=== PATIENT | male | born 1965 | race Caucasian/White ===

== ENCOUNTER 2025-02-14 12:59 | Emergency (ER) | payer OTHER, SELFPAY ==
[2025-02-14 13:01] VITALS: BP 149/99
[2025-02-14] MEDS: TORADOL 30 MG IM (13:07)
[2025-02-14 13:16] LABS: Hematocrit 49.2 % (39.0-52.0); Hemoglobin 17.0 g/dL (13.0-18.0); Mean Corp Hgb Conc. 34.6 g/dL (33.0-37.0); Mean Corpuscular Volume 87.1 fL (80.0-94.0); Nucleated Red Blood Cells % 0 % (-); Platelet Count 176 10^3/uL (130-400); Red Cell Dist. Width 13.1 % (11.5-14.5)
[2025-02-14 13:31] LABS: ALT (SGPT) 24 U/L (0-50); AST (SGOT) 24 U/L (17-59); Albumin 5.3 g/dl (3.5-5.0); Alkaline Phosphatase 57 U/L (38-126); Blood Urea Nitrogen 25 mg/dl (9-20); Calcium 9.5 mg/dl (8.4-10.2); Carbon Dioxide 26 mmol/L (22-30); Chloride 103 mmol/L (98-107); Glucose 108 mg/dl (70-99); Potassium 3.8 mmol/L (3.5-5.1); Sodium 139 mmol/L (135-145); Total Protein 8.1 g/dl (6.3-8.2); eGFR > 60.00
[2025-02-14 16:54] LABS: Urine Character Clear (Clear)
[2025-02-14 17:01] LABS: Urine Squamous Cell 0-2 /LPF (Few)
[2025-02-14 17:02] LABS: Urine Red Blood Cell 80-90 /HPF (0-2); Urine White Cell 21-25 /HPF (0-5)
[2025-02-14] MEDS: NSS 1000 IV (18:05)
[2025-02-14] MEDS: MORPHINE SULFATE 4 MG IV (18:05)
--- NOTE | 2025-02-14 19:55 | ED.GENMED ---
History of Present Illness
General
Chief Complaint: Flank Pain
Source: patient
Exam Limitations: none
Time Seen by Provider: 02/14/25 16:56
Nursing documentation reviewed up to this point in time: agreed with
History of Present Illness
History of Present Illness:
59-year-old male presenting to the emergency department today with concerns of left-sided flank pain. On arrival patient with ongoing pain did receive Toradol with improvement. Vital signs are normal. Labs without acute abnormalities urinalysis
showing 80 red blood cells 20 white blood cells many bacteria but no nitrites. CT scan confirming a 4 mm stone to the mid left ureter.
Review of Systems
Review of Systems
Allergies reviewed?: Yes
All Other Systems: ROS reviewed and negative except as documented in HPI and ROS
Phy Exam
Physical Exam
Physical Exam:
GENERAL: Alert , in no apparent distress
EYE: pupils equal and reactive
NECK: Supple, no significant adenopathy.
ENT: o/p clr, mmm.
CARDIAC: Regular rate and rhythm .
LUNGS: Clear breath sounds bilaterally, no acute respiratory distress, no wheezes/rales/rhonchi
ABDOMEN: Soft, without focal tenderness, no r/g, no cvat
NEUROLOGICAL: Alert and oriented, no focal neuro deficits
SKIN: Warm and dry, skin intact.
MUSCULOSKELETAL: No edema, well perfused.
PSYCH: Normal and appropriate interaction.
Course
Orders/Labs/Results
Orders:
Orders
02/14/25 13:06
Ketorolac [Toradol] 30 mg .ROUTE .STK-MED ONE
02/14/25 13:07
CMP [Comprehensive Metabolic Panel] Urgent
Complete Blood Count/With Diff Urgent
Ketorolac [Toradol] 30 mg IM NOW STA
02/14/25 13:10
CT Abd/pelvis Wo Iv Cont Urgent
Comment:
Reason For Exam: left flank pain, hx of kidney stones
02/14/25 16:45
Urinalysis Reflex To Culture Urgent
Date Specimen was Collected: 02/14/25
Time Specimen was Collected: 16:35
Urine Microscopic Reflex Cult Urgent
Urine Culture Urgent
PAKO Source: U
Specimen Description:
Date Specimen was Collected: 02/14/25
Time Specimen was Collected: 16:35
02/14/25 17:50
0.9% Sodium Chloride 1000 ml [Nss] 1,000 ml IV BOLUS
Morphine Sulfate 4 mg IV NOW STA
Abnormal Lab Results
02/14/25 02/14/25
13:07 16:45
BUN 25 H mg/dl
(9-20)
Glucose 108 H mg/dl
(70-99)
Albumin 5.3 H g/dl
(3.5-5.0)
Urine Ketones 2+ A
(Negative)
Ur Occult Blood Reflex 4+ A
(Negative)
Leukocyte Esterase Rfl 1+ A
(Negative)
Urine RBC 80-90 A /HPF
(0-2)
Urine WBC (Reflex) 21-25 A /HPF
(0-5)
Urine Bacteria (Reflex) Many A
(Negative)
Urine Albumin (Reflex) 3+ A
(Neg - Trace)
02/14/25 13:07
02/14/25 13:07
Vital Signs
Initial and Last Documented VS:
Initial Vital Signs
Temp Pulse Resp BP Pulse Ox
97.4 F 72 18 149/99 100
02/14/25 13:01 02/14/25 13:01 02/14/25 13:01 02/14/25 13:01 02/14/25 13:01
Last Documented Vital Signs
Temp Pulse Resp BP Pulse Ox
97.4 F 70 16 149/99 99
02/14/25 13:01 02/14/25 19:58 02/14/25 18:00 02/14/25 13:01 02/14/25 19:58
MDM/Problems Addressed
MDM/Problems Addressed:
59-year-old male presenting to the emergency department today with concerns of left-sided flank pain. On arrival patient with ongoing pain did receive Toradol with improvement. Vital signs are normal. Labs without acute abnormalities urinalysis
showing 80 red blood cells 20 white blood cells many bacteria but no nitrites. CT scan confirming a 4 mm stone to the mid left ureter. Patient was given fluids as well as additional dose of pain medication. Case discussed with urology
recommending discharge home for trial of passage and close outpatient follow-up. Return precautions given.
*Pulse Oximetry
SaO2: 99
Oxygen Mode of Delivery: Room air
Patient hypoxic: no (99)
*Critical Care Note
Total Time (30-74mins, 75-104mins- exclusive of procedures): Not Applicable
ED Attending Note
-
Portions of this chart may have been created with voice recognition software.� Occasional wrong word or��sound alike� substitutions may have occurred due to the inherent limitations of voice recognition software.
Discharge Plan
Departure
Patient Disposition: Home (Routine Discharge)
Date of Disposition: 02/14/25
Time of Disposition: 19:37
Patient with high blood pressure during this ER visit?: No
Condition: Good
Covid-19: Not Applicable
Discharge Problem:
Kidney stone
Instructions: Kidney Stones (DC), How to Strain Your Urine
Prescriptions:
New
ibuprofen 600 mg tablet
600 mg PO Q8H PRN (Reason: Pain) Qty: 10 0RF
ondansetron 4 mg tablet,disintegrating
4 mg PO Q6H PRN (Reason: nausea and vomiting) Qty: 7 0RF
oxycodone 5 mg tablet
5 mg PO Q8H PRN (Reason: Pain) Qty: 5 0RF
Referrals:
Jose Luis Ibarra Jr., MD [Active, Urology] - Follow up in 5-7 days
Xenia Bennett DO [Family Provider, Family Practice]
Activity Restrictions/Additional Instructions:
You came to the emergency department today with concerns of flank pain consistent with a kidney stone. Please use the strainer when you urinate and follow-up closely with urology next week. Return for any worsening, new or concerning symptoms.
Interventions
Interventions:
*Risk Screen - Suicide Last Done: 02/14/25 16:54
*General Assessment Last Done: 02/14/25 16:54
*Neglect/Abuse Screening Last Done: 02/14/25 16:54
*ED- Fall Risk Assessment Last Done: 02/14/25 16:54
*ED COVID-19 Vaccine History Last Done: 02/14/25 18:37
*ED Influenza Vaccine History Last Done: 02/14/25 18:37
*Nursing Disposition Last Done: 02/14/25 19:58
[facility]-Djnm[facility]-Kjhwbuleib Assessment Last Done: 02/14/25 16:54
ED-Male Genitourinary Assessment Last Done: 02/14/25 16:54
Discharge Date and Time
Discharge Date/Time: 02/14/25 20:03
Print Language: [id number]
== END 2025-02-14 20:03 | disposition home or self-care (01) ==
LOC: EMR 12:59
PROVIDERS: Emergency Medicine; Student in an Organized Health Care Education/Training Program; EMERGENCY PHYSICIAN Emergency Medicine; FAMILY PHYSICIAN Family Medicine
DX: N13.2 Hydronephrosis with renal and ureteral calculous obstruction (principal); Z87.442 Personal history of urinary calculi
CPT/HCPCS: 99284; 96374; 96372; 74176; 80053; 81003; 81015; 85025; 87086